=== PATIENT | male | born 1940 | race Caucasian/White ===

== ENCOUNTER 2018-02-16 08:24 | Inpatient (IN) | payer MEDICAID, MEDICARE ==
[2018-02-16] MEDS ORDERED: Nitroglycerin TAB 0.4 MG* 0.4 MG TAB SL ONE (08:35)
[2018-02-16] MEDS ORDERED: Aspirin 81 mg CHEW TAB* 81 MG TAB.CHEW PO ONE (08:35)
[2018-02-16] MEDS ORDERED: Ticagrelor* 90 MG TAB PO ONE ×2 (08:41→08:43)
[2018-02-16] MEDS ORDERED: Morphine INJ** 4 MG/ML 1 ML CARPUJECT IV ONE (08:41)
[2018-02-16] MEDS ORDERED: Heparin for STEMI(*) 5,000 UNITS/ML 1 ML VIAL IV ONE ×2 (08:41→08:43)
[2018-02-16] MEDS ORDERED: Ondansetron INJ* 2 MG/ML VIAL ONE (08:43)
[2018-02-16] MEDS ORDERED: Morphine INJ* 2 MG/ML 1 ML SYRINGE (TWO MG - NEW SYRINGE VERSION) ONE ×2 (08:43→11:52)
[2018-02-16] MEDS ORDERED: Aspirin 81 mg CHEW TAB* 81 MG TAB.CHEW ONE (08:43)
[2018-02-16] MEDS ORDERED: Nitroglycerin TAB 0.4 MG* 0.4 MG TAB ONE (08:43)
--- NOTE | 2018-02-16 08:50 | ED ---
HPI Chest Pain - HPI Summary HPI Summary: This is scribe Gilbert Bustillo documenting for attending Dr. Bryce Oquendo This patient is a 77 year old M presenting to [facility] with a chief complaint of severe central CP since 0700. 1 stent in November. Pt endorses systolic 188 when waking, 212 later. Pt endorses moderate SOB. Pt endorses taking a NTG before leaving, and denies taking ASA. STEMI alert called 0840. Pt denies eating or drinking yet today. PMHx quadruple bypass, and 1 stent 11/2017. I, Dr. Wu personally performed the services described in this documentation as scribed in my presence and it is both accurate and complete. - History of Current Complaint Chief Complaint: EDChestPainROMI Time Seen by Provider: 02/16/18 08:34 Hx Obtained From: Patient Onset/Duration: Started Hours Ago, Atraumatic, Still Present Timing: Constant, Lasting Hours Initial Severity: Moderate Current Severity: Severe Pain Intensity: 10 Pain Scale Used: 0-10 Numeric Chest Pain Location: Mid Sternal Character: Sharp/Stabbing Aggravating Factor(s): Nothing Alleviating Factor(s): Nothing Associated Signs and Symptoms: Positive: Chest Pain, Shortness of Breath. Negative: Fever Related History: Similar Episode/Dx as: - previous DE - Allergy/Home Medications Allergies/Adverse Reactions: Allergies Allergy/AdvReac Type Severity Reaction Status Date / Time Penicillins Allergy Rash Verified 02/16/18 08:52 PMH/Surg Hx/FS Hx/Imm Hx Endocrine/Hematology History: Denies: Hx Diabetes Cardiovascular History: Reports: Hx Angina, Hx Coronary Artery Disease, Hx Hypercholesterolemia, Hx Hypertension, Hx Myocardial Infarction Denies: Hx Valvular Heart Disease Respiratory History: Reports: Hx Asthma Denies: Hx Chronic Obstructive Pulmonary Disease (COPD) GI History: Reports: Other GI Disorders - Diverticulitis Musculoskeletal History: Denies: Hx Arthritis, Hx Osteoporosis Sensory History: Reports: Hx Contacts or Glasses Opthamlomology History: Reports: Hx Contacts or Glasses - Cancer History Cancer Type, Location and Year: prostate, active; Hx of basal melenoma - Surgical History Surgery Procedure, Year, and Place: carpul tunnel, shoulder surgery Infectious Disease History: No Infectious Disease History: Denies: Traveled Outside the [place] in Last 30 Days - Social History Alcohol Use: None Substance Use Type: Reports: None Smoking Status (MU): Never Smoked Tobacco Review of Systems Negative: Fever Positive: Chest Pain Positive: Shortness Of Breath Positive: no symptoms reported All Other Systems Reviewed And Are Negative: Yes Physical Exam - Summary Physical Exam Summary: VITAL SIGNS: Reviewed. GENERAL: Patient is an elderly male who is lying. Patient is not in any acute respiratory distress. Pt in acute distress secondary to CP. HEAD AND FACE: No signs of trauma. No ecchymosis, hematomas or skull depressions. No sinus tenderness. EYES: PERRLA, EOMI x 2, No injected conjunctiva, no nystagmus. EARS: Hearing grossly intact. Ear canals and tympanic membranes are within normal limits. MOUTH: Oropharynx within normal limits. NECK: Supple, trachea is midline, no adenopathy, no JVD, no carotid bruit, no c- spine tenderness, neck with full ROM. CHEST: Symmetric, no tenderness at palpation LUNGS: Clear to auscultation bilaterally. No wheezing or crackles. CVS: Regular rate and rhythm, S1 and S2 present, no murmurs or gallops appreciated. ABDOMEN: Soft, non-tender. No signs of distention. No rebound, no guarding, and no masses palpated. Bowel sounds are normal. EXTREMITIES: FROM in all major joints, no edema, no cyanosis or clubbing. NEURO: Alert and oriented x 3. No acute neurological deficits. Speech is normal and follows commands. SKIN: Warm, clammy, slightly diaphoretic Triage Information Reviewed: Yes Vital Signs On Initial Exam: Initial Vitals Temp Pulse Resp BP Pulse Ox 98.4 F 58 20 189/96 99 02/16/18 08:28 02/16/18 08:28 02/16/18 08:28 02/16/18 08:28 02/16/18 08:28 Vital Signs Reviewed: Yes Diagnostics - Vital Signs Vital Signs Temp Pulse Resp BP Pulse Ox 02/16/18 08:28 98.4 F 58 20 189/96 99 - Laboratory Result Diagrams: 02/16/18 08:46 Lab Statement: Any lab studies that have been ordered have been reviewed, and results considered in the medical decision making process. - Radiology CXR Xray Interpretation: No Acute Changes Radiology Interpretation Completed By: Radiologist - No active cardiopulmonary disease is noted. Dr. Wu has reviewed this report. - EKG 0837 Cardiac Rate: Bradycardia - 58 EKG Rhythm: Sinus Bradycardia Ectopy: None EKG Interpretation: shows ST elevations in leads II, III, and F aVF consistant with DE Chest Pain Course/Dx - Course Course Of Treatment: 0840 STEMI alert called. Assessment/Plan: This patient is a 77-year-old male who presents to the emergency room with a chief complaint of having retrosternal and left-sided chest pain. The patient reports that the pain started a couple days ago however today has been the worst. Patient took his cardiac medications this morning including a nitroglycerin and the symptoms do not improve therefore he decided to come to the emergency room for further workup and management. Patient has past medical history significant for coronary artery disease status post CABG (quadruple bypass at [facility]), hypertension, cardiac stents, prostate cancer under active surveillance and melanoma. EKG shows ST elevations in leads II, III, and F aVF consistent with an acute inferior wall DE. A STEMI alert was initiated. I discussed the case with Dr. Adam from interventional cardiology and he will come to see the patient. The patient was given aspirin, Brilinta, heparin, and morphine for the pain. The patient continues to have pain and he is prehypertensive therefore decided to start with a nitroglycerin drip. The patient will be admitted to Dr. Adam for a possible cardiac catheterization. - Chest Pain Differential Diagnosis/HQI/PQRI: Acute DE, ACS, Angina, CHF, Chest Wall, GI Disease, Lower Respiratory Infection - Diagnoses Provider Diagnoses: STEMI (ST elevation myocardial infarction) - Provider Notifications Discussed Care Of Patient With: Cher Adam Time Discussed With Above Provider: 08:42 Instructed by Provider To: Other - discussed pt EKG, STEMI, will consult, accept admission. - Critical Care Time Critical Care Time: 30-74 min - 51 minutes Discharge - Sign-Out/Discharge Documenting (check all that apply): Patient Departure - admit - Discharge Plan Condition: Critical Disposition: ADMITTED TO [facility] Attestation Statement User Type: Provider - Dr. Bryce Brewer personally performed the services described in this documentation as scribed in my presence and it is both accurate and complete.
[2018-02-16] MEDS: nitroGLYCERIN DRIP* 25,000 MCG/250 ML BTL IV ONE ×2 (08:57→11:09)
[2018-02-16 08:59] LABS: ABS Basophils 0.1 10^3/ul (0-0.2); ABS Eosinophils 0.6 10^3/ul (0-0.6); ABS Lymphocytes 1.4 10^3/ul (1.0-4.8); ABS Monocytes 0.6 10^3/ul (0-0.8); ABS Nucleated RBC 0 10^3/ul; Eosinophil % 7.3 % (0-6); Hematocrit 44 % (42-52); Hemoglobin 14.7 g/dl (14.0-18.0); Lymphocyte % 18.1 % (25-47); Mean Corpuscular HGB Conc 34 g/dl (31-36); Mean Corpuscular Hemoglobin 29 pg (27-31); Mean Corpuscular Volume 87 fL (80-94); Mean Platelet Volume 8.4 um3 (7.4-10.4); Nucleated Red Blood Cells % 0.1; Platelet Count 221 10^3/ul (150-450); Red Blood Count 5.04 10^6/ul (4.00-5.40); Red Cell Distribution Width 15 % (10.5-15); White Blood Count 7.6 10^3/ul (3.5-10.8)
--- NOTE | 2018-02-16 09:08 | RAD ---
Indication: Chest pain. Single frontal view of the chest performed at 0855 hours was reviewed. Comparison is made with previous exam dated February 07, 2014. No mediastinal shift is noted. Heart is of normal size and configuration. Lung nielson appear clear. IMPRESSION: NO ACTIVE CARDIOPULMONARY DISEASE IS NOTED.
[2018-02-16 09:13] LABS: INR 0.87 (0.77-1.02)
[2018-02-16] MEDS ORDERED: Iodixanol* (CONTRAST) 320 MG/ML 100 ML SDV ONE ×3 (09:19→12:37)
[2018-02-16 09:56] LABS: EGFR Non-African American 51.8 (>60)
[2018-02-16] MEDS ORDERED: Nitroglycerin TAB 0.4 MG* 0.4 MG TAB SL PRN ×2 (10:46→13:40)
[2018-02-16] MEDS: NS 0.9% 1000 ML* 1,000 ML IV ONE ×2 (11:18→14:16)
[2018-02-16] MEDS: Acetaminophen TAB* 325 MG PO PRN (11:28)
[2018-02-16] MEDS ORDERED: Atropine SYRINGE* 0.1 MG/ML 10 ML SYRINGE (1 MG) ONE (11:42)
[2018-02-16] MEDS ORDERED: Atropine SYRINGE* 0.1 MG/ML 10 ML SYRINGE (1 MG) IV ONE (11:55)
[2018-02-16] MEDS ORDERED: Morphine INJ* 2 MG/ML 1 ML SYRINGE (TWO MG - NEW SYRINGE VERSION) IV ONE (11:55)
[2018-02-16] MEDS: Atorvastatin* 80 MG TAB PO SCH (17:49)
--- NOTE | 2018-02-16 18:54 | HP ---
CC: Dr. Brunson HISTORY AND PHYSICAL: DATE OF ADMISSION: 02/16/18 PRIMARY CARE PHYSICIAN: Dr. Brunson at the [facility] in [place]. HISTORY OF PRESENT ILLNESS: A 77-year-old male with previous bypass grafting presenting to our ER with an inferior ST elevation infarct. We have partial records from [place] including a cath report from 04/09/04. He apparently had bypass grafting x5 in early 2003 at [place]. The cath in April was done as part of a protocol, revealed 50% LAD stenosis, 80% diagonal stenosis, significant stenosis of 2 marginal branches as well as the RPDA. There was mild to moderate in- stent restenosis of the proximal RCA prior stent. The GAINES was occluded and small, the vein graft to the diagonal was patent, the sequential vein graft to the 2 marginals and ending on the RPDA was patent. LV function was normal with normal wall motion. In retrospect, he has had some exertional angina recently, this morning at around 7 a.m., he developed severe unremitting chest pain, presented to the ER. EKG at 0837 hours showed sinus bradycardia at [address] elevation in II, III, aVF, reciprocal ST depression in I and aVL as well as poor R wave progression. He was brought to the bolt labeler for emergent catheterization. He has no history of palpitations or syncope, heart failure symptoms. PAST MEDICAL HISTORY: History of melanoma on a digit, hyperlipidemia. SOCIAL HISTORY: He is . He is a nonsmoker. 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 FAMILY HISTORY: Positive for heart disease. MEDICATIONS: Pre-hospital medications recorded to the intake form, not yet updated include: 1. Zocor. 2. Nitroglycerin. 3. Nasonex. 4. Lopressor. 5. Meloxicam. 6. Lisinopril. 7. Aspirin. ALLERGIES: PENICILLIN. PHYSICAL EXAMINATION VITAL SIGNS: Presenting BP was elevated at 189/96, heart rate in the 50s, sinus bradycardia. HEENT: Unremarkable without xanthelasma. NECK: JVP was not elevated. LUNGS: His lungs were clear laterally. No rales or wheezes. He was complaining of moderate chest pain. CARDIAC: Exam revealed regular rhythm, very soft systolic murmur, no gallop, no rub. ABDOMEN: Benign without bruit. Aorta was not palpable. Radial and femoral pulses were palpable. He had a healed midline sternotomy incision. EXTREMITIES: Radial and pedal pulses were normal, he had no cyanosis, clubbing , or edema. LABORATORY DATA/DIAGNOSTIC STUDIES: EKG as above. CBC is normal, BMP notable only for a creatinine of 1.34. In February 2014, creatinine was 1.21. He has had previous unremarkable renal angiography in 2003. His BNP was elevated at 598, cholesterol 135, triglycerides 102, LDL direct 89, HDL low at 30.4. Random blood sugar 109, normal lactate. Chest x-ray by my review showed changes of previous bypass grafting, no heart failure or infiltrate. IMPRESSION: 1. Inferior wall ST elevation infarct, he underwent emergent catheterization. He has a previous history of bypass grafting with stenting of the RCA, and a sequential vein graft to 2 marginals and the RPDA as well as a single vein graft to a diagonal and a previously documented occluded GAINES to the LAD. Previous LV systolic function was normal without any recent measurement. 2. Chronic kidney disease, stage 3 with remote negative renal angiography and history of hypertension. 3. Hyperlipidemia. [id number]/[facility] #: [id number] [facility]
[2018-02-16] MEDS: Ticagrelor* 90 MG TAB PO SCH (20:46)
[2018-02-17] MEDS ORDERED: Saline NASAL SPRAY 0.65%* BTL BOTH NARES PRN (01:14)
[2018-02-17] MEDS ORDERED: amLODIPine TAB* 5 MG PO ONE (05:05)
[2018-02-17] MEDS ORDERED: amLODIPine TAB* 5 MG ONE (05:12)
[2018-02-17 05:52] LABS: ABS Basophils 0 10^3/ul (0-0.2); ABS Eosinophils 0.4 10^3/ul (0-0.6); ABS Lymphocytes 0.8 10^3/ul (1.0-4.8); ABS Monocytes 0.8 10^3/ul (0-0.8); ABS Neutrophils 6.4 10^3/ul (1.5-7.7); ABS Nucleated RBC 0 10^3/ul; Eosinophil % 4.5 % (0-6); Hematocrit 38 % (42-52); Hemoglobin 13.1 g/dl (14.0-18.0); Lymphocyte % 9.2 % (25-47); Mean Corpuscular HGB Conc 34 g/dl (31-36); Mean Corpuscular Hemoglobin 29 pg (27-31); Mean Corpuscular Volume 86 fL (80-94); Mean Platelet Volume 8.2 um3 (7.4-10.4); Nucleated Red Blood Cells % 0; Platelet Count 183 10^3/ul (150-450); Red Blood Count 4.45 10^6/ul (4.00-5.40); Red Cell Distribution Width 15 % (10.5-15); White Blood Count 8.3 10^3/ul (3.5-10.8)
[2018-02-17 06:15] LABS: EGFR Non-African American 61.8 (>60)
[2018-02-17] MEDS: Acetaminophen TAB* 325 MG PO PRN (08:37)
[2018-02-17] MEDS: Aspirin 81 mg CHEW TAB* 81 MG TAB.CHEW PO SCH (08:37)
[2018-02-17] MEDS: Ticagrelor* 90 MG TAB PO SCH ×2 (08:37→21:17)
[2018-02-17] MEDS ORDERED: Albuterol HFA INHALER* 8 gm MDI INH PRN (10:40)
[2018-02-17] MEDS ORDERED: amLODIPine TAB* 5 MG PO SCH (11:00)
[2018-02-17] MEDS: Metoprolol Tartrate TAB* 25 MG PO SCH ×2 (11:42→21:18)
[2018-02-17] MEDS: Hydrochlorothiazide TAB* 25 MG PO SCH (11:42)
[2018-02-17] MEDS: Lisinopril TAB* 10 MG PO SCH (11:42)
[2018-02-17] MEDS: Cyanocobalamin TAB* 500 MCG PO SCH (11:43)
--- NOTE | 2018-02-17 16:47 | CATH ---
CC: Dr. Brunson; Dr. Aguilera; Dr. Cher Adam STENT REPORT: DATE OF PROCEDURE: 02/16/18 PRIMARY CARE PHYSICIAN: Dr. Brunson at [place]. CABLE REELER: Dr. Aguilera at [place]. PROCEDURES: Right radial artery access, right coronary artery angiography, aspiration thrombectomy RCA, double bolus IV Integrilin, stent placement RCA 3 x 16 Synergy drug-eluting stent, 3 x12 Synergy drug-eluting stent IVUS RCA. HISTORY: A 77-year-old male who this morning had an inferior ST-elevation infarct, received 2 drug-eluting stents in the RCA. Several hours later, he had acute recurrence of chest pain with acute ST elevation, was brought back to the cleaner laboratory equipment with suspected stent acute thrombosis. First procedure was via the groin. ACCESS: Right radial artery sheath 6-F Slender. MEDICATIONS: 1. Subcu lidocaine. 2. IV Versed. 3. IV fentanyl. 4. Radial cocktail with heparin 3000 units, verapamil 3 mg, nitroglycerin 300 mcg. 5. IV nitroglycerin drip. 6. Heparin 2000 units IV. 7. Double bolus IC Integrilin. GUIDING CATHETER: [employer] 6-[place]orran IR1, wire 14 BMW. After the occlusion point was crossed, a Pronto V4 catheter was used to aspirate the RCA, after which there was antegrade flow. A 3 x 16 Synergy drug- eluting stent was then deployed at the occlusion point, overlapping the distal end of the previous stent from this morning, and then post dilated into the earlier stent with a 3.5 x 20 mm NC Emerge balloon to 24 atmospheres 30 seconds proximally, distally 16 and 30. Chest pain resolved. IVUS was then introduced to evaluate the etiology of stent thrombosis to rule out under expansion/ incomplete apposition. It demonstrated a distal uncovered dissection extending beyond the just placed stent. Therefore, an additional Synergy 3 x 12 drug- eluting stent was deployed 14 atmospheres, the 3.5 x 20 NC balloon was then reinserted and used to post dilate in the just deployed stent, avoiding its very distal end, followed by series of overlapping higher pressure inflations extending backwards 20 atmospheres 30 seconds. A 4 x 12 NC balloon was then inserted and again the more proximal stents were post dilated to expand them further to 13 atmospheres 30 seconds, 20 atmospheres 20 seconds, 20 atmospheres 20 seconds. He was given double bolus IC Integrilin after aspiration thrombectomy. A repeat IVUS evaluation was performed. A hemostatic band was used for hemostasis. HEMODYNAMICS: Initial BP 118/67, final 118/66. ANGIOGRAPHY: Right radial. There was some resistance to J-wire passage at the elbow, there was some tortuosity but no stenosis, this was easily traversed with a Wholey wire. RCA. The RCA is large, dominant, has a previously placed proximal stent which has some intimal hyperplasia but no significant stenosis, the RCA is occluded at the acute margin at the distal end of the recently placed acute margin stent. There is very faint distal antegrade flow. After aspiration thrombectomy, there is episcopalian of antegrade flow with visible short dissection extending past the stent from this morning. The more distal stent is widely patent. There is again cesgg-zx-goca collateral filling of the distal end of the old vein graft. After placement of 2 drug-eluting stents covering the distal edge dissection as well as post dilatation and expansion of the stents from this morning, there is no residual stenosis, there is YUDY 3 flow, no evident dissection. IVUS: Initial IVUS evaluation revealed an uncovered dissection distal to the just deployed stent. This was subsequently covered with a second stent. The most distal stent placed this morning had a minimal luminal area of 5.53, 2.5 x 2.6 mm with excellent apposition and expansion. The more proximal stents had areas under expansion, although all stents were apposed. After repeat high pressure balloon inflation, final IVUS run demonstrated excellent apposition and expansion of the initial as well as just deployed stents, with a distal reference diameter of 3.13 x 3.67, area 8.98. Minimal luminal area within the more proximal larger stents with calcification in 1 quadrant showed 1 fairly short area of under expansion with complete apposition with luminal area of 8.14 , 2.9 x 3.6 mm. CONCLUSION: 1. Acute stent thrombosis due to unrecognized distal edge dissection, excellent angiographic result with coverage with 2 drug-eluting stents, excellent angiographic as well as IVUS result after additional post dilatation. 2. Successful right radial artery access. [id number]/[facility] #: [id number] [facility]
--- NOTE | 2018-02-17 17:04 | CATH ---
Amended report to enter date of procedure. CC: Dr. Brunson; Dr. Cher Adam* STENT REPORT: DATE OF PROCEDURE: 02/16/2018. PRIMARY CARE PHYSICIAN: Dr. Brunson at [facility]. PROCEDURES: Right common femoral artery access, bilateral selective coronary cineangiography, vein graft angiography. The GAINES was not injected as it is known to be occluded from prior cath. No left heart or left ventriculogram. Stent placement RCA 2.7 x 12 Synergy drug-eluting stent distally, 4 x 20 Synergy drug-eluting stent proximally. HISTORY: A 77-year-old male with CABG x5 in 2003, subsequent cath that year documented occlusion of the GAINES with only 50% LAD stenosis. The diagonal had 80% stenosis with a patent saphenous vein graft, the circumflex marginals had significant stenosis with a patent sequential vein graft terminating on the RPDA. He presented with an inferior ST-elevation infarct. PROCEDURE ACCESS: Right common femoral artery sheath 6-F exchanged to a 6-F x 45 Car because of iliac tortuosity with reduced catheter movement. GAINES catheter was used for vein graft angiography and right coronary angiography, a 6FL 3.5 for left coronary imaging. LV gram was not performed. Groin was closed with Angio- Seal. MEDICATIONS: 1. Subcu lidocaine. 2. IV Versed. 3. IV fentanyl. 4. Aspirin and Brilinta loading dose in the ER. 5. Heparin 4000 units. Additional 4000 units IV. 6. IV nitroglycerin. HEMODYNAMICS: Initial AO 157/72, final BP 139/70. After diagnostic angiography, the RCA was approached using a 6FR4 guide, 14 BMW wire was used to deploy a 4 x 20 Synergy drug-eluting stent at the acute margin deployed 11 atmospheres 12 seconds, and post dilated with a 4 x 20 NC balloon 16 atmospheres 30 seconds. The more distal RCA stenosis was then stented with a 2.75 x 12 Synergy drug-eluting stent 11 atmospheres, post dilated with a 2.75 x 12 NC 18 atmospheres 30 seconds. Angio-Seal was used for hemostasis. ANGIOGRAPHY: RCA. The RCA is dominant with a large distribution, diffusely diseased, it has a previously placed proximal stent which has mild intimal hyperplasia without significant stenosis. At the acute margin, there is an irregular 80% stenosis, the RCA then continues with diffuse disease, more distally at the origin of a large posterolateral branch, there is a preceding hazy 80% stenosis. There is a small caliber PDA, which appears to be diffusely diseased, may be occluded, fills by othey-xz-wmbdl collaterals and then retrograde fills to distal end of a previous vein graft, which is near occluded after supplying the second marginal. Saphenous vein graft circumflex. The graft rises from the left side of the aorta, is diffusely irregular without proximal stenosis, inserts mgqg-st-mopy into the first marginal branch which it fills antegrade as well as retrograde, the SVG is then occluded. There is then antegrade filling via the cocopah circumflex to a second marginal branch and then filling of the near occluded more distal end of the diffusely severely diseased distal vein graft segment described above. Vein graft diagonal. It is small, diffusely diseased without significant stenosis, there may be an insertion stenosis of 40% to 50%, the diagonal is relatively small, there is competitive flow proximally, the ostium of the diagonal has an 80% stenosis. After stent implantation 2 sites RCA and post dilatation, there is YUDY 3 flow , no residual stenosis, there is a step down at the distal end of the acute marginal stent. There is no evident dissection or thrombus. Left main. The left main is short, normal. LAD. The LAD is moderate, extends to the apex, it has luminal irregularity, but I do not see any significant stenosis, there is tenting at the previous GAINES insertion site. There is filling of the bypass to diagonal branch, which has high- grade ostial stenosis. CONCLUSION: 1. Successful drug-eluting stent placement 2 sites cocopah RCA with resolution of chest pain and ST elevation in a patient with inferior ST-elevation infarct. 2. Three-vessel disease with patent vein graft to diagonal, which has mild-to- moderate insertion stenosis of questionable significance. Patent vein graft to the first marginal with subsequent occlusion and then pgjl-ns-qkgt as well as right-to- left collateral filling of the distal end of the vein graft. 3. Known occluded GAINES. 4. Successful Angio-Seal, right common femoral artery. [id number]/[facility] #: [id number] [facility]
[2018-02-17] MEDS: Atorvastatin* 80 MG TAB PO SCH (17:26)
[2018-02-17] MEDS: Fluticasone NASAL SPRAY 50MCG* 16 gm SPRAY BTL BOTH NARES PRN (21:17)
[2018-02-18] MEDS: Cyanocobalamin TAB* 500 MCG PO SCH (08:41)
[2018-02-18] MEDS: Hydrochlorothiazide TAB* 25 MG PO SCH (08:41)
[2018-02-18] MEDS: Lisinopril TAB* 10 MG PO SCH (08:41)
[2018-02-18] MEDS: Ticagrelor* 90 MG TAB PO SCH ×2 (08:42→21:05)
[2018-02-18] MEDS: Fluticasone NASAL SPRAY 50MCG* 16 gm SPRAY BTL BOTH NARES PRN (08:42)
[2018-02-18] MEDS: Aspirin 81 mg CHEW TAB* 81 MG TAB.CHEW PO SCH (08:42)
[2018-02-18] MEDS: Metoprolol Tartrate TAB* 25 MG PO SCH ×3 (08:44→21:05)
--- NOTE | 2018-02-18 09:42 | ECHO ---
Patient: LEVON AUGUSTIN [facility] Rec#: [id number] : 1940 Date: 02/18/2018 Age: 77y Height: 162.56 cm / 64.0 in Weight: 77.11 kg / 170.0 lbs Sex: M BSA: 1.83 Room#: 440 Admit Date#: 02/16/2018 Type: Inpatient Referring: Cher Adam MD Reading: Bashir Lawrence MD Trustee Of Estate: Kourtney Tsai RDCS CC: Ely Brunson MD Transthoracic Echocardiogram Indication: S/P STEMI, s/p PCI BP: 170/65 HR: 52 Rhythm: Bradycardia Findings History: CAD with CABG, HLD, HTN, CKD III. S/P PCI 02/16/18. Technical Comments: The study quality is fair. Completed at 0900. Left Ventricle: The left ventricular chamber size is normal. Moderate concentric left ventricular hypertrophy is observed. There is a focal wall motion abnormality present. Left ventricular systolic function is at the lower limits of normal. The estimated ejection fraction is 50-55%. Inferior hypokinesis with a small area of akinesis near the base of the inferior wall. Post surgical hypokinesis of the interventricular septum is observed consistent with coronary artery bypass. Abnormal left ventricular diastolic function is observed. Abnormal left ventricular diastolic filling is observed, consistent with impaired relaxation. The mid inferolateral, mid inferior, and mid inferoseptal wall segments are hypokinetic (score 2). The basal inferior wall segment is akinetic (score 3). Overall wallmotion score index is 1.31 Left Atrium: The left atrium is mildly dilated. Right Ventricle: The right ventricle wall thickness is mildly increased. The right ventricle is mildly dilated. The right ventricular global systolic function is normal. Right Atrium: The right atrium is mildly dilated. Aortic Valve: The aortic valve is trileaflet. The aortic valve leaflets are mildly thickened. There is mild aortic regurgitation. There is no evidence of aortic stenosis. The measured aortic regurgitation pressure half-time is 564 msec. Mitral Valve: There is mitral annular calcification. The mitral valve leaflets are mildly thickened. There is mild to moderate mitral regurgitation. There is no evidence of mitral stenosis. Tricuspid Valve: The tricuspid valve leaflets are normal. There is mild tricuspid regurgitation. The right ventricular systolic pressure is estimated at 26 mmHg. There is evidence that pulmonary hypertension may be underestimated. There is no tricuspid stenosis. Pulmonic Valve: The pulmonic valve appears normal. There is trace to mild pulmonic regurgitation. There is no pulmonic stenosis. Pericardium: There is no significant pericardial effusion. Aorta: There is mild dilatation of the ascending aorta. There is no dilatation of the aortic arch. There is mild dilatation of the aortic root. Pulmonary Artery: The main pulmonary artery appears normal. Venous: The inferior vena cava appears normal in size. There is a greater than 50% respiratory change in the inferior vena cava dimension. Conclusions Moderate concentric left ventricular hypertrophy is observed. Left ventricular systolic function is at the lower limits of normal. The estimated ejection fraction is 50-55%. Inferior hypokinesis with a small area of akinesis near the base of the inferior wall. Abnormal left ventricular diastolic filling is observed, consistent with impaired relaxation. The left atrium is mildly dilated. The right ventricle wall thickness is mildly increased. The right ventricle is mildly dilated. The right atrium is mildly dilated. There is mild aortic regurgitation. The aortic valve leaflets are mildly thickened. There is mild to moderate mitral regurgitation. There is mild tricuspid regurgitation. There is mild dilatation of the ascending aorta. There is mild dilatation of the aortic root. Compared to 2011, the inferior wall motion abnormality is new and the ef has decrease from 65% then to 50-55% now. Measurements Name Value Normal Range RVIDd (AP) 2D 3.7 cm (0.9 - 2.6) RVDdMajor (2D) 4.7 cm (2.2 - 4.4) RVAW (2D) 0.6 cm (0.2 - 0.5) RAd ISD 4CH 5 cm (3.4 - 4.9) RA (A4C)W 3.9 cm (2.9 - 4.6) IVSd (2D) 1.3 cm (0.6 - 1) LVPWd (2D) 1.4 cm (0.6 - 1) LVIDd (2D) 4.9 cm (3.6 - 5.4) LVIDs (2D) 3 cm - LV FS (2D) 39 % (25 - 45) Aortic Annulus 2.2 cm (1.4 - 2.6) Ao root diameter (2D) 4 cm (2.1 - 3.5) Ascending Ao 3.9 cm (2.1 - 3.4) Aortic arch 2.1 cm (1.8 - 3.4) LA dimension (AP) 2D 4.6 cm (2.3 - 3.8) LAd ISD 4CH 4.5 cm (2.9 - 5.3) LA ISD 4CH W 4.5 cm (2.5 - 4.5) Name Value Normal Range LA ESV SP 4CH (A/L) 66 ml - LA ESV SP 2CH (A/L) 63 ml - LA ESV BP (A/L) 67 ml - LA ESV BP (A/L) index 36 ml/m2 - LA ESV SP 4CH (MOD) 62 ml - LA ESV SP 2CH (MOD) 59 ml - Name Value Normal Range MV E-wave Vmax 0.6 m/sec - MV deceleration time 302.7 msec - MV A-wave Vmax 0.76 m/sec - MV E:A ratio 0.78 ratio - LV septal e' Vmax 0.05 m/sec - LV lateral e' Vmax 0.06 m/sec - LV E:e' septal ratio 12 ratio - LV E:e' lateral ratio 10 ratio - Name Value Normal Range AV Vmax 1.5 m/sec - AV VTI 33.7 cm - AV peak gradient 8.95 mmHg - AV mean gradient 4.56 mmHg - LVOT diameter 2 cm - LVOT Vmax 0.9 m/sec - LVOT VTI 20.5 cm - LVOT peak gradient 3.4 mmHg - LVOT mean gradient 1.93 mmHg - AR PHT 564 msec - LENIN Vmax 1.5 m/sec - Name Value Normal Range TR Vmax 2.4 m/sec - TR peak gradient 23 mmHg - RAP 3 mmHg - RVSP 26 mmHg - IVC diameter 1.7 cm - Name Value Normal Range PV Vmax 0.7 m/sec - PV peak gradient 2.3 mmHg - Wallmotion BAS Normal BA Normal BAL Normal GINNY Normal BI Akinetic BIS Normal MAS Normal MA Normal MAL Normal MIL Hypokinetic FL Hypokinetic MIS Hypokinetic Normal AA Normal AL Normal AI Normal APEX Normal
[2018-02-18] MEDS: Acetaminophen TAB* 325 MG PO PRN (11:24)
[2018-02-18] MEDS: amLODIPine TAB* 5 MG PO SCH (13:13)
[2018-02-18] MEDS: Atorvastatin* 80 MG TAB PO SCH (18:03)
[2018-02-19] MEDS: Hydrochlorothiazide TAB* 25 MG PO SCH (09:00)
[2018-02-19] MEDS: Aspirin 81 mg CHEW TAB* 81 MG TAB.CHEW PO SCH (09:01)
[2018-02-19] MEDS: Cyanocobalamin TAB* 500 MCG PO SCH (09:01)
[2018-02-19] MEDS: amLODIPine TAB* 5 MG PO SCH (09:01)
[2018-02-19] MEDS: Ticagrelor* 90 MG TAB PO SCH (09:01)
[2018-02-19] MEDS: Metoprolol Tartrate TAB* 25 MG PO SCH (09:01)
[2018-02-19] MEDS: Lisinopril TAB* 10 MG PO SCH (09:01)
[2018-02-19 09:45] LABS: EGFR Non-African American 52.3 (>60)
[2018-02-19 12:27] VITALS: BP 164/85
--- NOTE | 2018-02-19 14:30 | DS ---
cc: Dr. Brunson; [facility]* DISCHARGE SUMMARY: DATE OF ADMISSION: 02/16/18 DATE OF DISCHARGE: 02/19/18 FINAL DIAGNOSIS: Acute ST segment elevation inferior wall myocardial infarction. SECONDARY DIAGNOSES: Include: 1. Hyperlipidemia. 2. Prior coronary artery disease with bypass graft stenting in 2003. 3. History of melanoma. DISCHARGE MEDICATIONS: Include: 1. Albuterol inhaler. 2. Amlodipine 2.5 mg daily. 3. Lisinopril/hydrochlorothiazide 20/25 once a day. 4. Nitroglycerin p.r.n. 5. Nasonex 1 spray both nostrils. 6. Aspirin 81 mg a day. 7. Atorvastatin 80 mg a day. 8. Metoprolol tartrate 25 mg twice a day. 9. Ticagrelor 90 mg twice a day. HISTORY OF PRESENT ILLNESS AND HOSPITAL COURSE: The patient is a pleasant 77- year- old gentleman who presented to [facility] in the [facility] with acute segment elevation inferior wall myocardial infarction on 02/16/18. He was taken emergently to the cardiovascular laboratory where initial cardiac catheterization revealed the right coronary artery to be a large dominant vessel diffusely diseased and had a previously placed proximal stent which had mild intimal hyperplasia without significant stenosis at the acute margin as the artery turned on to the inferior surface with an irregular 80% stenosis. The coronary artery then continued with diffused disease more distally at the origin of a large posterior LV branch. There was a proceeding hazy 80% lesion. There was a small caliber PDA which appears to be diffusely diseased, may be occluded fills by right to right collateral and then retrograde fills to a distal end of a previous vein graft, which is near occluded after supplying the second marginal branch. The left main was short normal. The LAD was moderate extending to the apical region and had luminal irregularities, but it was not felt to have significant stenosis. There was tenting at a previous GAINES insertion area. There was filling of the bypass to diagonal branch, which has a high-grade ostial stenosis. The vein graft to the circumflex with diffusely irregular proximally inserted side to side to the first marginal branch which would fill the antegrade as well as retrograde. The SVG was then occluded. There was a antegrade filling via the [place] circumflex to a second marginal branch and then filling of a near occluded more distal end of distally diffusely diseased distal vein graft segment described above. Vein graft to the diagonal branch was small diffusely diseased without significant stenosis. There may be an insertion stenosis of 40% to 50%. The diagonal branch is a small vessel with competitive flow seen. The ostium of the diagonal has 80% lesion as described earlier. There was a known occlusion of the GAINES graft to the LAD. The patient underwent successful drug eluting stenting of 2 spots in the [place] right coronary artery with deployment of a 4.0 x20 mm long Synergy at the acute margin plus dilated to 4 mm with high pressure balloon replacement and more distally there was a placement of a 2.75 x 12 mm long post dilated to high pressure. Following this, the patient then proceeded to have an abrupt acute thrombosis and was brought back to the cardiovascular laboratory. He had an IVUS performed that was then introduced to look at the etiology and it demonstrated a distal uncovered dissection extending just beyond the placed stent. This was then covered with an additional 3.0 X 12 mm long drug-eluting stent and post dilated to a size 3.5 mm. Good hemostasis was obtained. During the course of the hospitalization, the patient had undergone an echocardiogram which revealed focal wall motion abnormality with inferior hypokinesis with the smaller airway akinesis near the base with an overall EF of 55%. There was moderate concentric left ventricular hypertrophy. The left atrium was mildly dilated. There was mild aortic regurgitation, mild-to- moderate mitral regurgitation, mild tricuspid regurgitation, mild dilatation of the ascending aorta, and mild dilatation of the aortic root. During the course of the hospitalization, he was stable eventually up and about. PHYSICAL EXAMINATION: On the day of the discharge, vital signs were stable. Blood pressure ranged at times elevated in the 150s to 160s range. Pulse was in the 60s. Respirations were 20, O2 saturation 98% on room air. Neck was supple. No increased JVP. Carotids had good upstroke and volume without bruits. Conjunctivae were pink. Sclerae were clear. Mouth revealed moist mucosa. Lungs revealed no accessory muscle usage. There was good excursion. There were no active rales, rhonchi, or wheezes. Heart revealed no visible heaves. No palpable heaves or thrills. Normal S1, S2. No significant systolic or diastolic murmur. Abdomen was soft, nontender without organomegaly. Extremities showed well-healed right radial artery with good antegrade flow in the radial artery. Neuro: The patient alert, oriented with normal mentation. Musculoskeletal: The patient with normal gait. Psychiatric: The patient with normal affect. DIAGNOSTIC STUDIES/LABORATORY DATA: The patient's initial BUN and creatinine were mildly elevated at 24 and 1.34. With hydration, they decreased somewhat, by the end, they were back to 22 and 1.3. The patient's cardiac enzymes were in an elevating pattern at that time. They were last checked with a MB that did peak at 9.6. The total CPK highest number was 302. The electrocardiogram on the day of discharge revealed T-wave inversion in II, III, aVF with poor R waves, probable Qs with T wave inversion in V5 and V6 with poor R wave progression in the precordial leads. There was minimal nonspecific ST segment depression in I and aVL. The patient was up, walking in the parker, stable without provoking any chest, jaw , or arm discomfort. A lengthy discussion was held with the patient on followup since he had a primary doctor at the [facility], I explained that he could see Dr. Aguilera and at this point being that he lives very close to the hospital, he favors following up with the veterinarian in the [facility]. As such we will arrange for a wound check by Dr. Adam 1 week from now followed by an office visit to one of our noninterventional veterinarian after that. The patient has received an education booklet as well as a stent card and he will as mentioned earlier be following up with Dr. Adam. [id number]/[facility] #: [id number] EVARISTO
== END 2018-02-19 13:30 | disposition home or self-care (01) | DRG 246 ==
LOC: ED 08:24 → CHICATH 08:50 → ICU 10:46 → MEDTELE 02-17 11:06
PROVIDERS: ADMIT Internal Medicine Cardiovascular Disease; ATTEND Internal Medicine Cardiovascular Disease
PROC: 027045Z Dilation of Coronary Artery, One Artery with Two Drug-eluting Intraluminal Devices, Percutaneous Endoscopic Approach (ICD-10-PCS; 2018-02-16)
PROC: 02C04ZZ Extirpation of Matter from Coronary Artery, One Artery, Percutaneous Endoscopic Approach (ICD-10-PCS; 2018-02-16)
PROC: B211YZZ Fluoroscopy of Multiple Coronary Arteries using Other Contrast (ICD-10-PCS; 2018-02-16)
PROC: B213YZZ Fluoroscopy of Multiple Coronary Artery Bypass Grafts using Other Contrast (ICD-10-PCS; 2018-02-16)
PROC: B210YZZ Fluoroscopy of Single Coronary Artery using Other Contrast (ICD-10-PCS; 2018-02-16)
PROC: 027045Z Dilation of Coronary Artery, One Artery with Two Drug-eluting Intraluminal Devices, Percutaneous Endoscopic Approach (ICD-10-PCS; principal; 2018-02-16 09:00)
DX: I21.19 ST elevation (STEMI) myocardial infarction involving other coronary artery of inferior wall (principal); I25.42 Coronary artery dissection; T82.867A Thrombosis due to cardiac prosthetic devices, implants and grafts, initial encounter; I25.10 Atherosclerotic heart disease of native coronary artery without angina pectoris; N18.3 Chronic kidney disease, stage 3 (moderate); I13.10 Hypertensive heart and chronic kidney disease without heart failure, with stage 1 through stage 4 chronic kidney disease, or unspecified chronic kidney disease; E78.5 Hyperlipidemia, unspecified; R07.9 Chest pain, unspecified; X58.XXXA Exposure to other specified factors, initial encounter; Y92.230 Patient room in hospital as the place of occurrence of the external cause; Z95.5 Presence of coronary angioplasty implant and graft; Z95.1 Presence of aortocoronary bypass graft; Z85.820 Personal history of malignant melanoma of skin; Z82.49 Family history of ischemic heart disease and other diseases of the circulatory system; Z79.82 Long term (current) use of aspirin; Z79.899 Other long term (current) drug therapy; Z88.0 Allergy status to penicillin
CPT/HCPCS: 36415; 71045; 80048; 80053; 80061; 82550; 82553; 83605; 83721; 83735; 83874; 83880; 84443; 84484; 85025; 85347; 85610; 85730; 86850; 86900; 86901; 87641; 93005; 93306; 99156; 99157; 99283; A9270-GY; C1725; C1757; C1760; C1769; C1876; C1887; C1894; C9600-RC; C9606-RC; J0461; J1644; J2270; J2405

== ENCOUNTER 2019-09-03 09:48 | Day surgery (SDC) | payer MEDICARE, MEDICAID ==
[~2019-09-03 09:48] MED LIST: Buffered Lidocaine 1% SYRIN* 1 ML/SYRINGE INTRADERM ONE; Famotidine IV* 10 MG/ML 2 ML (20 mg) IV ONE; Lactated Ringers 1000 ML Bag* 1,000 ML IV SCH
[2019-09-03] MEDS ORDERED: Clindamycin 900 MG/D5W BAG(*) 900 MG/50 ML BAG IVPB ONE (10:25)
[2019-09-03] MEDS ORDERED: Famotidine IV* 10 MG/ML 2 ML (20 mg) ONE (10:26)
[2019-09-03] MEDS ORDERED: Propofol* 10 MG/ML 20 ML BTL ONE ×2 (11:17→13:28)
[2019-09-03] MEDS ORDERED: Dexamethasone IV* 4 MG/ML 1 ML (4 MG) ONE (11:17)
[2019-09-03] MEDS ORDERED: Lidocaine 2% PF * 5 ML VIAL ONE (11:17)
[2019-09-03] MEDS ORDERED: Ondansetron INJ* 2 MG/ML VIAL ONE (11:17)
[2019-09-03] MEDS ORDERED: Midazolam* 1 MG/ML 10 ML VIAL (10 MG) ONE (11:18)
[2019-09-03] MEDS ORDERED: fentaNYL* 50 MCG/ML 2 ML VIAL (100 MCG VIAL) ONE (11:18)
[2019-09-03] MEDS ORDERED: KETAMINE HCL* 50 MG/ML 10 ML VIAL ONE (11:18)
[2019-09-03] MEDS ORDERED: Bupivacaine 0.5% W/EPI SDV* 30 ML VIAL ONE (12:26)
[2019-09-03] MEDS ORDERED: Lidocaine 1% INJ* 10 MG/ML 30 ML SDV ONE (12:26)
[2019-09-03] MEDS ORDERED: EPHEDrine (Pressors)* 50 MG/ML VIAL ONE (13:02)
[2019-09-03] MEDS ORDERED: fentaNYL* 50 MCG/ML 2 ML VIAL (100 MCG VIAL) IV PRN (13:16)
[2019-09-03] MEDS ORDERED: Ondansetron INJ* 2 MG/ML VIAL IV PRN (13:16)
[2019-09-03] MEDS ORDERED: Acetaminophen IV 1GM/100ML * 1,000 MG/100 ML VIAL IVPB ONE (13:16)
[2019-09-03] MEDS ORDERED: Naloxone* 0.4 MG/ML 1 ML VIAL IV PRN (13:16)
--- NOTE | 2019-09-03 14:08 | BRIEFOPN ---
Brief Operative/Procedure Note - Operation Details Pre-Op Diagnosis: Right inguinal hernia Post-Op Diagnosis: Right inguinal hernia Procedures: Open right inguinal hernia repair with mesh Surgeon(s)/Proceduralists: Dr. Hickman. Assist: GABBY Mcclellan Anesthesia: MAC Estimated Blood Loss: <20cc Findings: As above Specimen(s)/Culture(s) Description: Appendix Complications: None
[2019-09-03 16:11] VITALS: BP 131/74
--- NOTE | 2019-09-04 03:26 | OP ---
CC: Ely Brunson MD * DATE OF OPERATION: 09/03/19 - [facility] DATE OF : 42 SURGEON: Kevin Hickman MD BILINGUAL MEDICAL ASSISTANT: GABBY Hood ANESTHESIOLOGIST: Dr. Tonio Linares. ANESTHESIA: Local MAC. PRE-OP DIAGNOSIS: Right inguinal hernia. POST-OP DIAGNOSIS: Right inguinal hernia. OPERATIVE PROCEDURE: Open right inguinal hernia repair with mesh and incidental appendectomy. ESTIMATED BLOOD LOSS: Less than 20 mL. IV FLUIDS: Crystalloids. SPECIMEN: Appendix. DRAINS: None. COMPLICATIONS: None. COUNT: Instrument, needle, and sponge counts were correct. DESCRIPTION OF PROCEDURE: The patient was brought to the operating room and placed on the table supine. Sequential compression devices were placed on both lower extremities. Intravenous sedation was administered. His right groin was prepped and draped in the usual sterile fashion. A time-out was performed. Local anesthetic was infiltrated into the skin and soft tissue prior to making each incision. The oblique right groin incision was created approximately 6 cm long. Subcutaneous tissues were divided with cautery. Crossing veins were cauterized and divided. External oblique aponeurosis was identified. An additional anesthetic was infiltrated beneath this and the the external oblique aponeurosis was opened along lying in line with fibers through the superficial ring. The aponeurosis was reflected back upon itself. The ilioinguinal nerve was identified, preserved in the lateral direction. Contents of the inguinal canal were isolated with a 0.25- inch [place] drain. The patient was noted to have a large indirect inguinal hernia sac and this was dissected free from the spermatic cord preserving it. The sac was opened in order to identify the contents and there was appendix within it, which was a sliding component of the sac. During manipulation of the appendix, serosal injury was noted and it was decided to perform appendectomy incidentally. The appendix was elevated, a window created in the mesentery at the base. The appendix mesentery was divided between clamps, ligated with two absorbable ties. Base of the appendix was clamped and divided and then doubly ligated with 2-0 Vicryl ties. The appendiceal stump was then returned to the abdominal cavity. The redundant portions of the sac were excised after closing it with 3- 0 Vicryl. Irrigation was performed and then repair was performed with polypropylene plug and patch. These were fashioned from a single piece of 6 x 6 inch polypropylene. The plug was fashioned in a cone shape, placed into the deep ring, sutured to the overlying musculature with interrupted 2-0 Vicryl. The patch was then fashioned to cover the floor and this was sutured to the pubic tubercle at the conjoint tendon and the shelving edge of the inguinal ligament with interrupted 2-0 Vicryl with a lateral splint created in the mesh to allow the egress of the spermatic cord. At this point, it was decided to sacrifice the ilioinguinal nerve as it was in the path of the closure and this was ligated with a 4-0 absorbable tie after dividing it sharply. The aponeurosis of the external oblique was then run closed with 2-0 Vicryl. Lavern 's was closed with 3-0 Vicryl in an interrupted fashion. The skin was closed with 4-0 Monocryl in a running subcuticular fashion and then Steri-Strips were applied. The patient tolerated the procedure well, and was transferred to Recovery in stable condition. [id number]/[facility] #: [id number] EVARISTO
== END 2019-09-03 15:30 | disposition home or self-care (01) ==
LOC: OR 09:48
PROVIDERS: ATTEND Surgery
DX: K40.90 Unilateral inguinal hernia, without obstruction or gangrene, not specified as recurrent (principal); I25.10 Atherosclerotic heart disease of native coronary artery without angina pectoris; I25.2 Old myocardial infarction; I10 Essential (primary) hypertension; C61 Malignant neoplasm of prostate; J45.909 Unspecified asthma, uncomplicated; Z95.1 Presence of aortocoronary bypass graft; Z88.0 Allergy status to penicillin; M19.90 Unspecified osteoarthritis, unspecified site; Z95.5 Presence of coronary angioplasty implant and graft; I08.3 Combined rheumatic disorders of mitral, aortic and tricuspid valves
CPT/HCPCS: 88304; C1781; J1100; J2250; J2405; J2704; J3010

== ENCOUNTER 2024-05-24 18:40 | Inpatient (IN) ==
[2024-05-24 19:36] LABS: ABS Eosinophils 0.2 10^3/uL (0.0-0.5); ABS Lymphocytes 0.6 10^3/uL (1.0-4.8); ABS Monocytes 0.5 10^3/uL (0.0-1.1); ABS Neutrophils 4.7 10^3/uL (1.5-7.6); ABS Nucleated RBC 0.01 10^3/ul; Eosinophil % 3.2 %; Hematocrit 39.4 % (38-53); Hemoglobin 13.1 g/dL (13.2-16.3); Lymphocyte % 10.2 %; Mean Corpuscular Hemoglobin 30.5 pg (27-33); Mean Corpuscular Hgb Conc 33.1 g/dL (31-36); Mean Corpuscular Volume 91.9 fL (80-97); Nucleated Red Blood Cells % 0.1 %/100WBC (0.0-0.8); Platelet Count 258 10^3/uL (150-450); Red Blood Count 4.28 10^6/uL (4.06-5.63); Red Cell Distribution Width 14.6 % (12-17); White Blood Count 6.1 10^3/uL (3.6-10.2)
[2024-05-24 19:46] LABS: INR 1.05 (0.85-1.14)
[2024-05-24 20:42] LABS: Albumin 4.3 g/dL (3.2-5.2); Calcium 9.4 mg/dL (8.6-10.3); Creatinine, Serum 1.37 mg/dL (0.67-1.17); Globulin 2.2 g/dL (2-4); Potassium 3.8 mmol/L (3.5-5.0); Total Bilirubin 0.5 mg/dL (0.2-1.0); Total Protein 6.5 g/dL (6.4-8.9); eGFR CKD-EPI 51.5 (>60)
[2024-05-24 21:00] LABS: High Sensitivity Troponin 1 Hr 53 pg/mL (<20)
[2024-05-25] MEDS: Enoxaparin 80 MG/0.8 ML SYR SUBCUT SCH (00:05)
[2024-05-25] MEDS: Nitro 2% OINT (Nitroglycerin) 1 INCH/PAK TOPICAL ONE (03:41)
[2024-05-25] MEDS: Heparin 5000 UNITS/ML 1 mL VIAL IV SCH (06:08)
[2024-05-25 06:54] LABS: ABS Eosinophils 0.2 10^3/uL (0.0-0.5); ABS Lymphocytes 0.7 10^3/uL (1.0-4.8); ABS Monocytes 0.6 10^3/uL (0.0-1.1); ABS Neutrophils 4.6 10^3/uL (1.5-7.6); Eosinophil % 3.7 %; Hematocrit 37.3 % (38-53); Hemoglobin 12.6 g/dL (13.2-16.3); Lymphocyte % 11.5 %; Mean Corpuscular Hemoglobin 31.1 pg (27-33); Mean Corpuscular Hgb Conc 33.7 g/dL (31-36); Mean Corpuscular Volume 92.4 fL (80-97); Mean Platelet Volume 8.3 fL (7.5-11.2); Platelet Count 246 10^3/uL (150-450); Red Blood Count 4.04 10^6/uL (4.06-5.63); White Blood Count 6.1 10^3/uL (3.6-10.2)
[2024-05-25 07:15] LABS: Activated Partial Thrombo Time 39.7 seconds (26.0-38.0); HDL Cholesterol 33.4 mg/dL; INR 1.04 (0.85-1.14)
[2024-05-25 08:46] LABS: High Sensitivity Troponin 1 Hr 58 pg/mL (<20)
[2024-05-25] MEDS: Heparin DRIP 25,000 UNITS BAG 25,000 UNITS/250 ML BAG IV SCH (08:54)
[2024-05-25] MEDS ORDERED: Heparin 5000 UNITS/ML 1 mL VIAL IV SCH (09:00)
[2024-05-25] MEDS ORDERED: Lisinopril/HCTZ 20/25 TAB (NF) PO SCH (09:00)
[2024-05-25] MEDS: nitroGLYCERIN DRIP 25,000 MCG/250 ML BTL IV SCH ×5 (09:08→14:57)
[2024-05-25] MEDS: Heparin DRIP 25,000 UNITS BAG 25,000 UNITS/250 ML BAG IV ONE (09:08)
[2024-05-25] MEDS: nitroGLYCERIN DRIP 25,000 MCG/250 ML BTL ONE (10:49)
[2024-05-25 11:19] LABS: TSH Ultra Thyroid Stim Horm 3.57 mcIU/mL (0.34-5.60)
[2024-05-25 11:19] LABS: High Sensitivity Troponin 3 Hr 54 pg/mL (<20)
[2024-05-25 11:25] LABS: Ferritin 58.6 ng/mL (24-336)
[2024-05-26 06:22] LABS: Hematocrit 34.1 % (38-53); Hemoglobin 11.4 g/dL (13.2-16.3); Mean Corpuscular Hemoglobin 30.7 pg (27-33); Mean Corpuscular Hgb Conc 33.5 g/dL (31-36); Mean Corpuscular Volume 91.6 fL (80-97); Mean Platelet Volume 7.8 fL (7.5-11.2); Platelet Count 227 10^3/uL (150-450); Red Blood Count 3.72 10^6/uL (4.06-5.63); Red Cell Distribution Width 14.7 % (12-17); White Blood Count 5.9 10^3/uL (3.6-10.2)
[2024-05-26 06:40] LABS: Activated Partial Thrombo Time 54.7 seconds (26.0-38.0)
[2024-05-26 07:09] LABS: Calcium 8.8 mg/dL (8.6-10.3); Creatinine, Serum 1.32 mg/dL (0.67-1.17); Magnesium 1.9 mg/dL (1.9-2.7); Potassium 3.9 mmol/L (3.5-5.0); eGFR CKD-EPI 53.9 (>60)
[2024-05-26 07:19] LABS: INR 1.06 (0.85-1.14)
[2024-05-26 19:05] LABS: High Sensitivity Troponin 1 Hr 26 pg/mL (<20)
[2024-05-27 04:29] LABS: ABS Basophils 0.1 10^3/uL (0.0-0.1); ABS Eosinophils 0.2 10^3/uL (0.0-0.5); ABS Lymphocytes 0.6 10^3/uL (1.0-4.8); ABS Monocytes 0.6 10^3/uL (0.0-1.1); ABS Neutrophils 4.4 10^3/uL (1.5-7.6); Eosinophil % 3.6 %; Hematocrit 33.7 % (38-53); Hemoglobin 11.2 g/dL (13.2-16.3); Lymphocyte % 10.4 %; Mean Corpuscular Hemoglobin 30.3 pg (27-33); Mean Corpuscular Hgb Conc 33.2 g/dL (31-36); Mean Corpuscular Volume 91.3 fL (80-97); Mean Platelet Volume 7.7 fL (7.5-11.2); Nucleated Red Blood Cells % 0.1 %/100WBC (0.0-0.8); Platelet Count 204 10^3/uL (150-450); Red Blood Count 3.69 10^6/uL (4.06-5.63); Red Cell Distribution Width 14.5 % (12-17); White Blood Count 5.9 10^3/uL (3.6-10.2)
[2024-05-27 05:04] LABS: Calcium 8.8 mg/dL (8.6-10.3); Creatinine, Serum 1.26 mg/dL (0.67-1.17); Magnesium 1.9 mg/dL (1.9-2.7); Potassium 3.9 mmol/L (3.5-5.0); eGFR CKD-EPI 56.9 (>60)
[2024-05-27] MEDS ORDERED: fentaNYL 250 mcg/5 ml 50 MCG/ML 5 ml VIAL (250 MCG) ONE ×2 (07:49→08:55)
[2024-05-27] MEDS ORDERED: Midazolam 5 mg/5 ml VIAL 1 mg/ml 5 ml VIAL (5 mg) ONE ×2 (07:49→08:57)
[2024-05-27] MEDS ORDERED: Sulfur Hexaflouride MICROSPHR 25 MG VIAL ONE (08:32)
[2024-05-27] MEDS: Sulfur Hexaflouride MICROSPHR 25 MG VIAL IV PRN (08:55)
[2024-05-27] MEDS ORDERED: Heparin 1,000 UNIT/ML 10 ml (10,000 UNITS) CATHLAB/DIALYSIS ONE (08:57)
[2024-05-27] MEDS ORDERED: VERAPAMIL 2.5 MG/ML 2 ML VIAL ** 5 mg/2 ml ONE (08:57)
[2024-05-27] MEDS ORDERED: Lidocaine 1% MPF 5 ML VIAL ONE (08:57)
[2024-05-27] MEDS ORDERED: fentaNYL 100 mcg/2 ml 50 MCG/ML VIAL ONE (08:57)
[2024-05-27] MEDS ORDERED: Heparin 2 UNITS/ML 1000 mls 2,000 ML IV ONE (08:57)
[2024-05-27] MEDS ORDERED: Iohexol 350 (CONTRAST) 100 ML PAK IV ONE ×2 (08:57→09:42)
[2024-05-27] MEDS ORDERED: nitroGLYCERIN DRIP 25,000 MCG/250 ML BTL ONE (08:58)
[2024-05-27] MEDS ORDERED: Bivalirudin 250 MG VIAL ONE ×3 (10:09→10:24)
[2024-05-27] MEDS ORDERED: Heparin 2 UNITS/ML IVPREMIX 1,000 UNIT/500 ML BAG IV ONE (10:33)
[2024-05-27] MEDS: NS 0.9% 1000 ml BAG 1,000 ML IV SCH (11:26)
[2024-05-27] MEDS ORDERED: Nitroglycerin 0.3 mg TAB SL PRN (12:09)
[2024-05-27 15:04] VITALS: BP 135/80
== END 2024-05-27 15:46 | disposition short-term general hospital (02) | DRG 981 ==
LOC: ED 18:40 → SUATTDRO 22:01 → EDHOLD 22:01 → MEDTELE 05-25 00:52 → ICU 05-25 06:25
PROVIDERS: ADMIT Internal Medicine; ATTEND Student in an Organized Health Care Education/Training Program